=== PATIENT | male | born 1990 | race Caucasian/White ===

== ENCOUNTER 2017-03-04 09:47 | Emergency (ER) | payer OTHER | END 2017-03-04 10:50 | disposition home or self-care (01) | LOC: E/R 10:50 | DX: J32.9 Chronic sinusitis, unspecified (principal) | CPT/HCPCS: 99283; Z7502 ==

== ENCOUNTER 2017-10-06 12:21 | Emergency (ER) | payer OTHER ==
[2017-10-06] MEDS: METHYLPREDNISOLONE 125 MG INJ IM (13:51)
== END 2017-10-06 13:55 | disposition home or self-care (01) ==
LOC: FTE 12:21
DX: R21 Rash and other nonspecific skin eruption (principal)
CPT/HCPCS: 96372; 99284-25